=== PATIENT | male | born 1990 | race Caucasian/White ===

== ENCOUNTER 2021-11-08 22:28 | Emergency (ER) | payer BC ==
[~2021-11-08] VITALS: Ht 180.3 cm; Wt 72.6 kg
[2021-11-09] MEDS ORDERED: AMOX TR-K CLV1 EACH PO (00:43)
[2021-11-09] MEDS ORDERED: CEPHALEXIN500 MG PO (00:48)
== END 2021-11-09 00:58 | disposition home or self-care (01) ==
LOC: ED 22:28
DX: H66.93 Otitis media, unspecified, bilateral (principal)
CPT/HCPCS: 99282

== ENCOUNTER 2023-04-23 18:31 | Emergency (ER) | payer OTHER ==
[~2023-04-23] VITALS: Ht 180.3 cm; Wt 72.6 kg
[~2023-04-23 18:31] MED LIST: AMOX TR-K CLV1 EACH PO; CEPHALEXIN500 MG PO
[2023-04-23 19:58] VITALS: BP 123/76
== END 2023-04-23 20:00 | disposition home or self-care (01) ==
LOC: ED 18:31
DX: S01.01XA Laceration without foreign body of scalp, initial encounter (principal); W26.8XXA Contact with other sharp object(s), not elsewhere classified, initial encounter; W20.8XXA Other cause of strike by thrown, projected or falling object, initial encounter
CPT/HCPCS: 99282

== ENCOUNTER 2023-08-25 18:18 | Emergency (ER) | payer OTHER ==
[~2023-08-25] VITALS: Ht 182.9 cm; Wt 67.1 kg
[2023-08-25] MEDS ORDERED: HYDROCODON-ACE1 EA10 PO (19:40)
[2023-08-25] MEDS ORDERED: AMOX TR-K CLV1 EAC1 PO (19:40)
[2023-08-25 20:20] VITALS: BP 132/91
== END 2023-08-25 19:42 | disposition home or self-care (01) ==
LOC: ED 18:18
DX: K04.7 Periapical abscess without sinus (principal)
CPT/HCPCS: 99282; A9270; J1885